=== PATIENT | male | born 1940 | race Caucasian/White ===

== ENCOUNTER 2021-09-12 12:29 | Observation (INO) ==
[2021-09-12] MEDS ORDERED: 0.9 % Sodium Chloride 1,000 ML IVC ONE (12:43)
[2021-09-12 13:21] LABS: Basophils % 0.4 %; Eosinophils # 0.1 K/mcL (0.0-0.6); Eosinophils % 1.5 %; Hematocrit 37.2 % (37.5-50.1); Hemoglobin 13.4 g/dL (12.9-16.9); Immature Granulocytes % 4.1 % (0-4); Lymphocytes # 1.8 K/mcL (0.6-4.6); Mean Corpuscular Hemoglobin 36.4 pg (28.0-33.3); Mean Corpuscular Volume 101.1 fL (83.0-100.0); Mean Platelet Volume 9.4 fL (9.4-12.4); Monocytes # 0.5 K/mcL (0.0-1.3); Neutrophils # 2.8 K/mcL (1.6-8.9); Platelet Count 301 K/mcL (140-400); Red Blood Count 3.68 M/mcL (4.19-5.50); Red Cell Distribution Width 12.5 % (11.5-14.5); White Blood Count 5.4 K/mcL (4.3-11.1)
[2021-09-12 13:55] LABS: BUN/Creatinine Ratio 15 (6-26); Blood Urea Nitrogen 13 mg/dL (8-23); Calcium 9.5 mg/dL (8.6-10.3); Carbon Dioxide 26 mEq/L (23-29); Chloride 94 mEq/L (98-107); Glucose 114 mg/dL (70-105); Osmolality,Calculated 275 (280-300); Potassium 2.9 mEq/L (3.5-5.1); Sodium 132 mEq/L (136-145); Troponin I < 0.03 ng/mL (< 0.04); eGFR For African Americans > 60 (> 60); eGFR For Non-African Americans > 60 (> 60)
[2021-09-12] MEDS ORDERED: Potassium Chloride Elixir 20 MEQ/15 ML UDC PO ONE ×2 (14:05→15:53)
[2021-09-12] MEDS ORDERED: Melatonin 3 MG TABLET PO PRN (14:30)
[2021-09-12] MEDS ORDERED: Acetaminophen 325 MG TABLET PO PRN (14:30)
[2021-09-12] MEDS ORDERED: Naloxone 0.4 MG/ML INJ IVP PRN (14:30)
[2021-09-12] MEDS ORDERED: Ondansetron ODT 4 MG TAB.RAPDIS SL PRN (14:30)
[2021-09-12 16:22] LABS: C-Reactive Protein 14 mg/L (Less than 10)
[2021-09-12 16:44] LABS: Folate 7.2 ng/mL (3.0-16.0)
[2021-09-12] MEDS ORDERED: levETIRAcetam 1,000 MG in 0.9 % Sodium Chloride 100 ML IVPB ONE (17:34)
[2021-09-12] MEDS ORDERED: levETIRAcetam 250 MG TABLET PO SCH (18:00)
[2021-09-12] MEDS ORDERED: Perflutren Lipid Microsphere 1.3 ML in 0.9 % Sodium Chloride 8.7 ML IVP PRN (18:05)
[2021-09-12] MEDS ORDERED: *HR* LORazepam 2 MG/ML VIAL IVP PRN ×3 (18:20)
[2021-09-12] MEDS: Apixaban 5 MG TABLET PO SCH (20:53)
[2021-09-13] MEDS ORDERED: levETIRAcetam 250 MG TABLET PO SCH (06:00)
[2021-09-13 06:11] LABS: INR 1.5; Prothrombin Time 17.1 Seconds (9.4-12.1)
[2021-09-13 06:12] LABS: Activated Partial Thrombo Time 30.5 Seconds (26.0-36.0)
[2021-09-13 06:26] LABS: Alanine Aminotransferase 16 Units/L (7-52); Albumin 3.5 g/dL (3.5-5.7); Albumin/Globulin Ratio 1.1 (1.1-2.2); Alkaline Phosphatase 80 Units/L (34-104); Aspartate Amino Transferase 16 Units/L (13-39); BUN/Creatinine Ratio 18 (6-26); Bilirubin,Total 0.8 mg/dL (0.3-1.0); Blood Urea Nitrogen 16 mg/dL (8-23); Calcium 8.9 mg/dL (8.6-10.3); Carbon Dioxide 26 mEq/L (23-29); Chloride 101 mEq/L (98-107); Cholesterol 139 mg/dL (< 200); Globulin 3.1 g/dL (2.4-3.5); Glucose 105 mg/dL (70-105); HDL Cholesterol 28 mg/dL (40-59); LDL Cholesterol,Calculated 65 mg/dL (< 100); Osmolality,Calculated 284 (280-300); Potassium 3.3 mEq/L (3.5-5.1); Sodium 136 mEq/L (136-145); Total Protein 6.6 g/dL (6.4-8.9); Triglycerides 229 mg/dL (< 150); Troponin I < 0.03 ng/mL (< 0.04); eGFR For African Americans > 60 (> 60); eGFR For Non-African Americans > 60 (> 60)
[2021-09-13] MEDS: Folic Acid 1 MG TABLET PO SCH (08:23)
[2021-09-13] MEDS: Apixaban 5 MG TABLET PO SCH ×2 (08:23→20:13)
[2021-09-13] MEDS: Aspirin Enteric Coated 81 MG Tablet PO SCH (08:23)
[2021-09-13] MEDS: Thiamine (B-1) 100 MG TABLET PO SCH (08:23)
[2021-09-13] MEDS: amLODIPine 5 MG TABLET PO SCH (08:23)
[2021-09-13] MEDS: Vitamin B Complex/Vit C/Vit E 1 EACH TABLET PO SCH (08:23)
[2021-09-13 12:12] LABS: Estimated Average Glucose 126 mg/dl
[2021-09-13] MEDS ORDERED: Potassium Chloride Elixir 20 MEQ/15 ML UDC PO ONE (15:18)
[2021-09-14 05:41] LABS: Hematocrit 34.6 % (37.5-50.1); Hemoglobin 12.2 g/dL (12.9-16.9); Mean Corpuscular HGB Conc 35.3 g/dL (31.6-35.5); Mean Corpuscular Hemoglobin 37.4 pg (28.0-33.3); Mean Corpuscular Volume 106.1 fL (83.0-100.0); Mean Platelet Volume 9.8 fL (9.4-12.4); Platelet Count 285 K/mcL (140-400); Red Blood Count 3.26 M/mcL (4.19-5.50); Red Cell Distribution Width 12.8 % (11.5-14.5); White Blood Count 5.3 K/mcL (4.3-11.1)
[2021-09-14 06:50] LABS: BUN/Creatinine Ratio 23 (6-26); Blood Urea Nitrogen 17 mg/dL (8-23); Calcium 7.7 mg/dL (8.6-10.3); Carbon Dioxide 26 mEq/L (23-29); Chloride 101 mEq/L (98-107); Glucose 105 mg/dL (70-105); Magnesium 1.5 mg/dL (1.6-2.6); Osmolality,Calculated 284 (280-300); Potassium 3.5 mEq/L (3.5-5.1); Sodium 136 mEq/L (136-145); eGFR For African Americans > 60 (> 60); eGFR For Non-African Americans > 60 (> 60)
[2021-09-14] MEDS: Thiamine (B-1) 100 MG TABLET PO SCH (08:37)
[2021-09-14] MEDS: Apixaban 5 MG TABLET PO SCH ×2 (08:37→19:43)
[2021-09-14] MEDS: Folic Acid 1 MG TABLET PO SCH (08:37)
[2021-09-14] MEDS: amLODIPine 5 MG TABLET PO SCH (08:37)
[2021-09-14] MEDS: Aspirin Enteric Coated 81 MG Tablet PO SCH (08:37)
[2021-09-14] MEDS: Vitamin B Complex/Vit C/Vit E 1 EACH TABLET PO SCH (08:37)
[2021-09-15 06:36] LABS: Hematocrit 38.4 % (37.5-50.1); Hemoglobin 13.1 g/dL (12.9-16.9); Mean Corpuscular HGB Conc 34.1 g/dL (31.6-35.5); Mean Corpuscular Hemoglobin 37.8 pg (28.0-33.3); Mean Corpuscular Volume 110.7 fL (83.0-100.0); Mean Platelet Volume 10.2 fL (9.4-12.4); Platelet Count 215 K/mcL (140-400); Red Blood Count 3.47 M/mcL (4.19-5.50); Red Cell Distribution Width 13.1 % (11.5-14.5); White Blood Count 4.6 K/mcL (4.3-11.1)
[2021-09-15 06:57] LABS: BUN/Creatinine Ratio 25 (6-26); Blood Urea Nitrogen 17 mg/dL (8-23); Calcium 8.5 mg/dL (8.6-10.3); Carbon Dioxide 26 mEq/L (23-29); Chloride 102 mEq/L (98-107); Glucose 105 mg/dL (70-105); Magnesium 1.7 mg/dL (1.6-2.6); Osmolality,Calculated 282 (280-300); Phosphorous 2.7 mg/dL (2.7-4.5); Potassium 3.8 mEq/L (3.5-5.1); Sodium 135 mEq/L (136-145); eGFR For African Americans > 60 (> 60); eGFR For Non-African Americans > 60 (> 60)
[2021-09-15] MEDS: Thiamine (B-1) 100 MG TABLET PO SCH (08:04)
[2021-09-15] MEDS: Apixaban 5 MG TABLET PO SCH (08:04)
[2021-09-15] MEDS: Vitamin B Complex/Vit C/Vit E 1 EACH TABLET PO SCH (08:04)
[2021-09-15] MEDS: Folic Acid 1 MG TABLET PO SCH (08:04)
[2021-09-15] MEDS: amLODIPine 5 MG TABLET PO SCH (08:04)
[2021-09-15] MEDS: Aspirin Enteric Coated 81 MG Tablet PO SCH (08:04)
[2021-09-15 12:50] VITALS: BP 125/83; PULSE 75; TEMP 98.9; O2SAT 100
== END 2021-09-15 16:50 | disposition home or self-care (01) ==
LOC: EMEROOARM 12:29 → 3NENU 12:29 → SUATTDRO 15:39 → 3NENU 16:30
PROVIDERS: ADMIT General Practice; ATTEND Student in an Organized Health Care Education/Training Program